=== PATIENT | male | born 1945 | race Caucasian/White ===

== ENCOUNTER → 2016-04-19 | Day surgery (SDC) | payer MEDICARE, OTHER ==
[~2016-04-19] VITALS: Ht 175.3 cm; Wt 87.5 kg
[~2016-04-19] MED LIST: ASPIRIN325 MG PO; FISH OIL 1,2001 EACH PO; PERCOCET 5-3251 EACH PO; TENORMIN25 MG PO; ZOCOR40 MG PO
--- NOTE | ~2016-04-19 | OR ---
PATIENT'S NAME: BIMAL BELLO [facility] AGE: 70 Y [address] ROOM: [place] [address] LOCATION: [facility] [place] ADMIT DATE: 04/19/2016 OR/Procedure Report DISCHARGE DATE: FAMILY PHYSICIAN: Last Arnold MD ATTENDING PHYSICIAN: Homero Jamison SURGEON: Homero Jamison MD [place] RO[facility] TELLER: Mel Lopez PA-C. DATE OF PROCEDURE: 04/19/2016 PREOPERATIVE DIAGNOSIS: Reducible symptomatic right inguinal hernia. POSTOPERATIVE DIAGNOSIS: Right inguinal hernia with indirect and direct defect, cord lipoma. PROCEDURES: Right inguinal herniorrhaphy with high sac ligation, partial excision of cord lipoma, ProLoop extra large mesh plug, and patch onlay of inguinal floor. ANESTHESIA: General with 38 mL of 0.5% Marcaine mixed with 1% Xylocaine. SPECIMEN: Hernia sac, not sent. INDICATION: The patient is a 70-year-old gentleman status post a previous left inguinal hernia repair who has now developed a right inguinal hernia. It is reducible and causes some discomfort. We discussed the operative repair. He wishes to proceed. DESCRIPTION OF PROCEDURE: After informed consent, the patient was taken to the operating room. After IV sedation, the anterior abdominal wall and right groin and scrotum were prepped and draped into a sterile field. Local anesthetic infiltrated throughout the procedure. A time-out was performed. An incision was made parallel to the right inguinal ligament carried down to the significant adipose tissue to identify Darlyn's fascia, it was incised and then we cleaned off the anterior surface of the external oblique. We divided through the external ring. We got control around the cord structures with a Cheryle drain, split off a cord lipoma and excised it. We split the cremasteric muscles, identified the indirect hernia sac, and did a high sac ligation. We inspected the medial floor, it was attenuated. We scored it. We created a properitoneal space in which we placed a ProLoop extra large mesh plug. We sewed it down to Saw's and above to the conjoint tendon. Preshaped keyhole mesh was then laid over the inguinal floors, sewed down to the pubic tubercle down to Saw's, transitioned up to the shelving edge of the inguinal ligament and progressed lateral to the internal ring. Above, it was tacked down to the internal oblique aponeuroses. The ilioinguinal nerve and cord structures went through the defect in the mesh. The external oblique PATIENT'S NAME: BIMAL BELLO [facility] AGE: 70 Y [address] ROOM: [place] [address] LOCATION: [facility] [place] ADMIT DATE: 04/19/2016 OR/Procedure Report DISCHARGE DATE: FAMILY PHYSICIAN: Last Arnold MD ATTENDING PHYSICIAN: Homero Jamison closed with 2-0 Vicryl, Darlyn's with 3-0 Vicryl, and the skin closed with subcuticular 4-0 Vicryl. Steri-Strips and sterile dressings applied. The patient tolerated the procedure well and transferred to recovery room in stable condition. HOMERO JAMISON MD WTS/modl /[id number] d: 04/19/1619 t: 04/19/16 1742, OPERATIVE SUMMARY
== END ==
LOC: GPOC 04-13 14:00 → GSDC 06:12
PROC: 0YQ50ZZ Repair Right Inguinal Region, Open Approach (ICD-10-PCS; principal; 2016-04-19)
DX: K40.90 Unilateral inguinal hernia, without obstruction or gangrene, not specified as recurrent (principal); D17.79 Benign lipomatous neoplasm of other sites; I10 Essential (primary) hypertension; E78.00 Pure hypercholesterolemia, unspecified; Z79.82 Long term (current) use of aspirin; Z79.899 Other long term (current) drug therapy; Z98.890 Other specified postprocedural states
CPT/HCPCS: C1781; J0690; J2001; J7030